=== PATIENT | male | born 1990 | race African-American/Black ===

== ENCOUNTER 2019-08-28 07:39 | Emergency (ER) | payer OTHER ==
[2019-08-28] MEDS ORDERED: IPRATROPIUM/ALBUTEROL 3 ML VIAL NEB ONE ×2 (07:43→07:48)
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
[2019-08-28] MEDS ORDERED: SODIUM CHLORIDE 0.9% (FLUSH) 10 ML SYG IV PRN (08:00)
[2019-08-28] MEDS ORDERED: methylPREDNISolone SODIUM SUC 125 MG/2 ML VIAL IV ONE (08:10)
--- NOTE | 2019-08-28 08:41 | RAD ---
EXAM DESCRIPTION: Chest,1 View CLINICAL HISTORY: 29 years Male, wheezing COMPARISON: None. TECHNIQUE: AP portable chest. FINDINGS/IMPRESSION: Patient's mildly rotated, partially limiting evaluation. Partial collapse of the left lower lobe with atelectatic changes. Increased airspace density within the right infrahilar region and left lung base may represent atelectasis, however, underlying pneumonia can also be considered within the appropriate clinical setting. No pneumothorax. The heart is normal in size. No acute osseous abnormality. Electronically signed by: Juan Maravilla DO 08/28/2019 8:39 AM CDT
--- NOTE | 2019-08-28 08:45 | RAD ---
EXAM DESCRIPTION: Shoulder, right 2 or More Views : CLINICAL HISTORY: B/l shoulder pain . COMPARISON: None . TECHNIQUE: A two view x-ray examination of Right shoulder is submitted. FINDINGS: There is no evidence of fracture, subluxation, dislocation or deformity. There is no evidence of soft tissue swelling. The bones are normally mineralized . The visualized joint spaces are normal. IMPRESSION: No evidence of fracture. Unremarkable study. Electronically signed by: Domenica Metz MD 08/28/2019 8:44 AM CDT
--- NOTE | 2019-08-28 08:45 | RAD ---
EXAM DESCRIPTION: Shoulder, left 2 or More Views : CLINICAL HISTORY: B/l shoulder pain . COMPARISON: None . TECHNIQUE: A two view x-ray examination of Left shoulder is submitted. FINDINGS: There is no evidence of fracture, subluxation, dislocation or deformity. There is no evidence of soft tissue swelling. The bones are normally mineralized . The visualized joint spaces are normal. IMPRESSION: No evidence of fracture. Unremarkable study. Electronically signed by: Domenica eMtz MD 08/28/2019 8:43 AM CDT
[2019-08-28] MEDS ORDERED: SODIUM CHLORIDE 0.9% 1000ML 1,000 ML IVS ONE ×2 (08:57→12:55)
[2019-08-28] MEDS ORDERED: SODIUM CHLORIDE 0.9% 500ML 500 ML IVS ONE (09:14)
[2019-08-28] MEDS ORDERED: MORPHINE SULFATE INJ 10 MG/ML VIAL IV ONE ×2 (09:40→15:09)
--- NOTE | 2019-08-28 10:36 | CT ---
EXAM DESCRIPTION: CTA Chest CLINICAL HISTORY: 29 years, Male, High dimer with shoulder pain COMPARISON: None TECHNIQUE: CT pulmonary angiography is performed with thin-section multi detector technique during rapid bolus administration of IV contrast media. Multiplanar reformatted images are reviewed along with source images and maximum intensity projection images which were created on a separate dedicated workstation and are stored in the patient's medical record. Per tomography technologist contrast was given to the patient, IV pressured out and IV had to be restarted. FINDINGS: Limited evaluation due to motion and contrast bolus timing. No evidence of filling defect within the main, right or left, or segmental pulmonary artery branches. The pulmonary arteries are normal in caliber. Limited evaluation of the thoracic aorta is within normal limits. Left lower lobe collapse. Dense airspace consolidation opacity also noted within the right lower lobe. No pneumothorax or significant pleural effusion. Opacity/mucous plugging within the right lower lobe distal bronchi. Tracheostomy tube terminates within the proximal trachea. The trachea and proximal airways are patent. Mild mediastinal lymphadenopathy. The heart is normal in size without pericardial effusion. No acute osseous abnormality. IMPRESSION: 1. Partially limited evaluation due to motion and contrast bolus timing. No evidence of acute or chronic pulmonary embolism. 2. Left lower lobe collapse and atelectasis with possible underlying infiltrates. 3. Right lower lobe airspace opacities concerning for aspiration pneumonia. 4. Mild mediastinal lymphadenopathy, nonspecific, and likely reactive. This exam was performed according to our departmental dose-optimization program, which includes automated exposure control, adjustment of the mA and/or kV according to patient size and/or use of iterative reconstruction technique. Electronically signed by: Juan Maravilla DO 08/28/2019 10:35 AM CDT
[2019-08-28] MEDS ORDERED: PIPERACILLIN/TAZOBACTAM 4.5 GM in SODIUM CHLORIDE 0.9% 100ML 100 ML IVPB ONE (10:53)
[2019-08-28] MEDS ORDERED: SODIUM CHLORIDE 0.9% 100ML 100 ML IVPB ONE (11:18)
[2019-08-28] MEDS ORDERED: PIPERACILLIN/TAZOBACTAM 2.25 GM VIAL IVPB ONE (11:18)
[2019-08-28 17:12] VITALS: TEMP 97.1
[2019-08-28 17:15] VITALS: BP 113/66; O2SAT 97
== END 2019-08-28 17:00 | disposition short-term general hospital (02) ==
LOC: ER 07:39
DX: J98.19 Other pulmonary collapse (principal); J18.9 Pneumonia, unspecified organism; M62.82 Rhabdomyolysis; M25.511 Pain in right shoulder; M25.512 Pain in left shoulder; Z99.11 Dependence on respirator [ventilator] status; Z79.899 Other long term (current) drug therapy
CPT/HCPCS: 36415; 71045; 71275; 73030; 80048; 80053; 81001; 82550; 82553; 83880; 84484; 85025; 85379; 85610; 85730; 93005; 94002; 94640; 94760; J2060; J2270; J2543; J2930; J7030; J7040; J7050; J7620

== ENCOUNTER 2019-09-05 15:55 | Emergency (ER) | payer OTHER ==
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
--- NOTE | 2019-09-05 16:30 | RAD ---
EXAM DESCRIPTION: Chest,1 View CLINICAL HISTORY: 29 years Male, poss sz COMPARISON: 08/28/2019 IMPRESSION: Heart size and pulmonary vascularity are within normal limits. Mild left basilar airspace opacity again demonstrated, most consistent with atelectasis or pneumonia. Small left pleural effusion versus pleural thickening. The right lung is essentially clear. No pneumothorax. No acute osseous abnormality. Partially imaged posterior cervical fusion hardware. Electronically signed by: Bear Bertrand MD 09/05/2019 4:29 PM CDT
[2019-09-05] MEDS ORDERED: ONDANSETRON INJ 4 MG/2 ML VIAL IV ONE (17:01)
[2019-09-05] MEDS ORDERED: MORPHINE SULFATE INJ 10 MG/ML VIAL IV ONE (17:01)
--- NOTE | 2019-09-05 19:35 | CT ---
EXAM DESCRIPTION: Head CLINICAL HISTORY: poss new onset seizure COMPARISON: None available TECHNIQUE: Multiple axial images of the head without contrast. Multiplanar reformatted images. This exam was performed according to our departmental dose-optimization program, which includes automated exposure control, adjustment of the mA and/or kV according to patient size and/or use of iterative reconstruction technique. FINDINGS: There is no CT evidence of intracranial hemorrhage, mass effect, or large territory infarction. The brain parenchyma and ventricles are normal. There are no abnormal extra-axial fluid collections. Vascular structures are unremarkable. There is no acute calvarial defect. Mild mucosal thickening in the left maxillary sinus and ethmoid air cells. Moderate mucosal thickening with frothy material in the right sphenoid sinus. The mastoid air cells are clear. IMPRESSION: 1. No CT evidence of an acute intracranial abnormality. Recommend follow-up MRI if symptoms persist. 2. Right sphenoid sinusitis. Electronically signed by: Bear Bertrand MD 09/05/2019 7:33 PM CDT
[2019-09-05 20:17] VITALS: TEMP 97.1
[2019-09-05 20:32] VITALS: BP 110/67; O2SAT 100
== END 2019-09-05 21:19 ==
LOC: ER 15:55
DX: R55 Syncope and collapse (principal); J98.11 Atelectasis; J01.30 Acute sphenoidal sinusitis, unspecified; G82.50 Quadriplegia, unspecified; K21.9 Gastro-esophageal reflux disease without esophagitis; F32.9 Major depressive disorder, single episode, unspecified; Z99.11 Dependence on respirator [ventilator] status; Z79.899 Other long term (current) drug therapy; Z93.1 Gastrostomy status; Z87.01 Personal history of pneumonia (recurrent)
CPT/HCPCS: 70450; 71045; 80053; 81001; 83605; 84484; 85025; 93005; 94002; 94770; J2270; J2405

== ENCOUNTER 2019-09-18 09:53 | Emergency (ER) | payer OTHER ==
--- NOTE | 2019-09-18 11:11 | ED.PDOC ---
History of Present Illness - General Chief Complaint: Respiratory Problem Stated Complaint: difficulty breathing Time Seen by Provider: 09/18/19 10:10 - History of Present Illness Initial Comments: Pt sent from the long-term for the evaluation of aspiration as per EMS pt had some difficulty breathing since 1 day, no fever or chills Timing/Duration: 4-6 hours Improving Factors: nothing Worsening Factors: nothing Associated Symptoms: denies symptoms Allergies/Adverse Reactions: Allergies NO KNOWN ALLERGY Allergy (Verified 08/28/19 07:47) Home Medications: Ambulatory Orders Acetaminophen Liquid [Tylenol Liquid] 650 ml PEG Q6HR PRN 08/28/19 Bisacodyl Suppository 10Mg [Dulcolax Suppository 10mg] [address] DAILY PRN 08/28/19 Cetirizine HCl [Cetirizine Hydrochloride] 10 mg PEG DAILY 08/28/19 Diphenhydramine HCl [Diphenhydramine Hydrochlo] 25 mg PEG Q6HR PRN 08/28/19 Docusate Sodium 100 mg PEG BID 08/28/19 Duloxetine HCl 60 mg PEG DAILY 08/28/19 Enoxaparin Sodium [Lovenox] 30 mg SUBCU BID 08/28/19 Gabapentin 300 mg PEG QID 08/28/19 Hydrocodone-Acetaminophen [Hydrocodone Bitartrate/AC] 15 - 30 ml PEG Q4H PRN 08/28/19 Ibuprofen 600 mg PEG Q6H PRN 08/28/19 LORazepam [Ativan] 1 mg PEG Q8H 08/28/19 Lactobacillus [Acidophilus] 1 cap PEG TID 08/28/19 Ondansetron HCl [Ondansetron Hydrochloride] 4 mg PEG Q4H PRN 08/28/19 Quetiapine Fumarate 50 mg PEG BEDTIME 08/28/19 Ranitidine HCl [Ranitidine Hydrochloride] 150 mg PEG BID 08/28/19 Simethicone 80 mg PEG Q6H PRN 08/28/19 Balsam Top[place] Oil [Venelex] 1 applic TOP DAILY 09/18/19 Cyclobenzaprine HCl [Flexeril] 10 mg PEG BID 09/18/19 Guaifenesin 20 ml PEG Q4H PRN 09/18/19 Review of Systems - Review of Systems Constitutional: States: no symptoms reported EENTM: States: no symptoms reported Respiratory: States: see HPI Cardiology: States: no symptoms reported Gastrointestinal/Abdominal: States: no symptoms reported Genitourinary: States: no symptoms reported Musculoskeletal: States: no symptoms reported Skin: States: no symptoms reported Neurological: States: no symptoms reported Endocrine: States: no symptoms reported Hematologic/Lymphatic: States: no symptoms reported All other Systems: Reviewed and Negative Past Medical History (General) - Patient Medical History Hx Stroke: No Hx Asthma: - Seasonal allergies Hx Congestive Heart Failure: No Hx Diabetes: No Hx Gastroesophageal Reflux: Yes - GERD; gastroparesis Hx MRSA: No - Vaccination History Hx Tetanus, Diphtheria Vaccination: - Unknown Hx Influenza Vaccination: Yes - 2019 Hx Pneumococcal Vaccination: - Unknown - Social History Hx Tobacco Use: Yes Hx Alcohol Use: No Hx Depression: Yes - Activities of Daily Living Senior Care/Assisted Living (if applicable):: [facility] Family Medical History - Family History Mother Family History: Unknown Living Status: Unknown Hx Family;Other: Pt on Mechanical Ventilation and difficult to understand without voicemitter Father Family History: Unknown Living Status: Still Living Physical Exam - Physical Exam General Appearance: Alert, Comfortable Eye Exam: bilateral normal Ears, Nose, Throat: hearing grossly normal Neck: supple Respiratory: lungs clear, no respiratory distress, no accessory muscle use Cardiovascular/Chest: tachycardia Extremity: other - paraplegic Neurologic: alert, normal mood/affect, oriented x 3, motor weakness - paraplegia Skin Exam: normal color, warm/dry Progress - Results/Orders Results/Orders: 09/18/19 10:10 Chest w/o Contrast [CT] Stat 09/18/19 10:15 EKG STAT 09/18/19 10:16 Capnography .ONCE Mechanical Ventilation DAILY Laboratory Results WBC 10.0 K/mm3 (4.8-10.8) 09/18/19 10:22 RBC 3.57 M/mm3 (4.70-6.10) L 09/18/19 10:22 Hgb 9.8 gm/dL (14.0-18.0) L 09/18/19 10:22 Hct 30.7 % (42.0-52.0) L 09/18/19 10:22 MCV 86.0 fl (80.0-94.0) 09/18/19 10:22 MCH 27.5 pg (27.0-31.0) 09/18/19 10:22 MCHC 32.0 g/dL (33.0-37.0) L 09/18/19 10:22 RDW 16.0 % (11.5-14.5) H 09/18/19 10:22 Plt Count 536 K/mm3 (130-400) H 09/18/19 10:22 MPV 6.8 fl (7.40-10.4) L 09/18/19 10:22 Absolute Neuts (auto) 6.60 K/uL (1.8-6.8) 09/18/19 10:22 Absolute Lymphs (auto) 1.70 K/uL (1.0-3.4) 09/18/19 10:22 Absolute Monos (auto) 1.20 K/uL (0.2-0.8) H 09/18/19 10:22 Absolute Eos (auto) 0.50 K/uL (0.0-0.4) H 09/18/19 10:22 Absolute Basos (auto) 0.00 K/uL (0.0-0.1) 09/18/19 10:22 Neutrophils % 65.8 % (42.0-78.0) 09/18/19 10:22 Neutrophils % (Manual) 62.0 % (42.0-78.0) 09/18/19 10:22 Lymphocytes % 17.1 % (20.0-50.0) L 09/18/19 10:22 Lymphocytes % (Manual) 24.0 % 09/18/19 10:22 Monocytes % 12.0 % (2.0-9.0) H 09/18/19 10:22 Monocytes % (Manual) 6.0 % 09/18/19 10:22 Eosinophils % 4.8 % (1.0-5.0) 09/18/19 10:22 Basophils % 0.3 % (0.0-2.0) 09/18/19 10:22 Band Neutrophils 2.0 % (0-2) 09/18/19 10:22 Eosinophils 6.0 % 09/18/19 10:22 Platelet Estimate Increased (NORMAL) 09/18/19 10:22 Poikilocytosis 1+ 09/18/19 10:22 Anisocytosis 2+ 09/18/19 10:22 Sodium 138 mmol/L (135-145) 09/18/19 10:22 Potassium 4.3 mmol/L (3.6-5.0) 09/18/19 10:22 Chloride 102 mmol/L (101-111) 09/18/19 10:22 Carbon Dioxide 24 mmol/L (21-31) 09/18/19 10:22 Anion Gap 16.3 (12-18) 09/18/19 10:22 BUN 11 mg/dL (7-18) 09/18/19 10:22 Creatinine 0.40 mg/dL (0.6-1.3) L 09/18/19 10:22 BUN/Creatinine Ratio 27.5 (10-20) H 09/18/19 10:22 Random Glucose 109 mg/dL (70-105) H 09/18/19 10:22 Serum Osmolality 275.7 mOsm/L (275-295) 09/18/19 10:22 Calcium 9.3 mg/dL (8.4-10.2) 09/18/19 10:22 Total Bilirubin 0.2 mg/dL (0.2-1.0) 09/18/19 10:22 AST 16 IU/L (10-42) 09/18/19 10:22 ALT 14 IU/L (10-60) 09/18/19 10:22 Alkaline Phosphatase 82 IU/L (42-121) 09/18/19 10:22 Serum Total Protein 7.7 gm/dL (6.4-8.2) 09/18/19 10:22 Albumin 2.5 g/dl (3.2-5.5) L 09/18/19 10:22 Globulin 5.2 gm/dL (2.3-3.5) H 09/18/19 10:22 Albumin/Globulin Ratio 0.5 (1.1-1.9) L 09/18/19 10:22 Departure - Departure Clinical Impression: Pneumonia, SOB (shortness of breath), Elevated d-dimer, Sinus tachycardia Time of Disposition: 12:19 Disposition: Left Against Medical Advice Condition: Fair Departure Forms: ED Discharge - Pt. Copy, Patient Portal Self Enrollment Diet: resume usual diet Activity: increase activity as tolerated Referrals: PIO DAVILA [Primary Care Provider] - 1-2 Weeks Home Medications: Ambulatory Orders Acetaminophen Liquid [Tylenol Liquid] 650 ml PEG Q6HR PRN 08/28/19 Bisacodyl Suppository 10Mg [Dulcolax Suppository 10mg] [address] DAILY PRN 08/28/19 Cetirizine HCl [Cetirizine Hydrochloride] 10 mg PEG DAILY 08/28/19 Diphenhydramine HCl [Diphenhydramine Hydrochlo] 25 mg PEG Q6HR PRN 08/28/19 Docusate Sodium 100 mg PEG BID 08/28/19 Duloxetine HCl 60 mg PEG DAILY 08/28/19 Enoxaparin Sodium [Lovenox] 30 mg SUBCU BID 08/28/19 Gabapentin 300 mg PEG QID 08/28/19 Hydrocodone-Acetaminophen [Hydrocodone Bitartrate/AC] 15 - 30 ml PEG Q4H PRN 08/28/19 Ibuprofen 600 mg PEG Q6H PRN 08/28/19 LORazepam [Ativan] 1 mg PEG Q8H 08/28/19 Lactobacillus [Acidophilus] 1 cap PEG TID 08/28/19 Ondansetron HCl [Ondansetron Hydrochloride] 4 mg PEG Q4H PRN 08/28/19 Quetiapine Fumarate 50 mg PEG BEDTIME 08/28/19 Ranitidine HCl [Ranitidine Hydrochloride] 150 mg PEG BID 08/28/19 Simethicone 80 mg PEG Q6H PRN 08/28/19 Balsam Topher[place] Oil [Venelex] 1 applic TOP DAILY 09/18/19 Cyclobenzaprine HCl [Flexeril] 10 mg PEG BID 09/18/19 Guaifenesin 20 ml PEG Q4H PRN 09/18/19 Comments: Pt refused for further treatment : says that he is tired and wants to go back to long-term , we explained him all the consequences for not doing further investigation and treatment but he still refused
--- NOTE | 2019-09-18 12:12 | CT ---
PROCEDURE: CT Chest Without Intravenous Contrast CLINICAL INDICATION: The patient is 29 years years old, Male; sob TECHNIQUE: Axial computed tomography images of the chest without intravenous contrast. Sagittal and coronal reformatted images were created and reviewed. This CT exam was performed using one or more of the following dose reduction techniques: automated exposure control, adjustment of the mA and/or kV according to patient size, and/or use of iterative reconstruction technique. COMPARISON: No relevant prior studies available. FINDINGS: LUNGS: Assessment of the lung parenchyma is compromised by marked respiratory motion artifact. Patchy alveolar opacities are noted in the right upper lobe and both lower lobes as well as in the lingula consistent with atelectasis and/or pneumonia versus edema. PLEURAL SPACE: Unremarkable. No significant effusion. No pneumothorax. HEART: The heart is unremarkable. BONES/JOINTS: There is no evidence of acute fracture, osseous destruction or osteoblastic changes. Transpediculate screws with interconnecting rods noted in the visualized lower cervical spine.. SOFT TISSUES: Unremarkable. VASCULATURE: Unremarkable. No abdominal aortic aneurysm. LYMPH NODES: There is no evidence of hilar, mediastinal or axillary adenopathy. Subcentimeter prevascular nodes are present TUBES, LINES AND DEVICES: Tracheostomy tube terminates approximately 9 cm above the christiano. UPPER ABDOMEN: Unremarkable. IMPRESSION: Assessment of the lung parenchyma is compromised by marked respiratory motion artifact. Patchy alveolar opacities are noted in the right upper lobe and both lower lobes as well as in the lingula consistent with atelectasis and/or pneumonia versus edema. Electronically signed by: Caroline Reddy MD 09/18/2019 12:10 PM COMPUTER REPAIRER
--- NOTE | 2019-09-18 12:13 | CT ---
PROCEDURE: CT Chest Without Intravenous Contrast CLINICAL INDICATION: The patient is 29 years years old, Male; sob TECHNIQUE: Axial computed tomography images of the chest without intravenous contrast. Sagittal and coronal reformatted images were created and reviewed. This CT exam was performed using one or more of the following dose reduction techniques: automated exposure control, adjustment of the mA and/or kV according to patient size, and/or use of iterative reconstruction technique. COMPARISON: No relevant prior studies available. FINDINGS: LUNGS: Assessment of the lung parenchyma is compromised by marked respiratory motion artifact. Patchy alveolar opacities are noted in the right upper lobe and both lower lobes as well as in the lingula consistent with atelectasis and/or pneumonia versus edema. PLEURAL SPACE: Unremarkable. No significant effusion. No pneumothorax. HEART: The heart is unremarkable. BONES/JOINTS: There is no evidence of acute fracture, osseous destruction or osteoblastic changes. Transpediculate screws with interconnecting rods noted in the visualized lower cervical spine.. SOFT TISSUES: Unremarkable. VASCULATURE: Unremarkable. No abdominal aortic aneurysm. LYMPH NODES: There is no evidence of hilar, mediastinal or axillary adenopathy. Subcentimeter prevascular nodes are present TUBES, LINES AND DEVICES: Tracheostomy tube terminates approximately 9 cm above the christinao. UPPER ABDOMEN: Unremarkable. IMPRESSION: Assessment of the lung parenchyma is compromised by marked respiratory motion artifact. Patchy alveolar opacities are noted in the right upper lobe and both lower lobes as well as in the lingula consistent with atelectasis and/or pneumonia versus edema. Electronically signed by: Caroline Reddy MD 09/18/2019 12:10 PM REGULATORY LEADER
[2019-09-18] MEDS ORDERED: levoFLOXacin 750MG IV 750 MG in PREMIX BAG 1 BAG IVPB ONE (12:23)
[2019-09-18] MEDS ORDERED: SODIUM CHLORIDE 0.9% 1000ML 1,000 ML IVS ONE (12:23)
[2019-09-18 14:21] VITALS: BP 124/81; TEMP 97.8; O2SAT 97
== END 2019-09-18 14:21 | disposition left against medical advice (07) ==
LOC: ER 09:53
DX: J18.9 Pneumonia, unspecified organism (principal); R00.0 Tachycardia, unspecified; R79.89 Other specified abnormal findings of blood chemistry; K21.9 Gastro-esophageal reflux disease without esophagitis; F32.9 Major depressive disorder, single episode, unspecified; G82.20 Paraplegia, unspecified; Z53.29 Procedure and treatment not carried out because of patient's decision for other reasons; Z79.899 Other long term (current) drug therapy; Z87.891 Personal history of nicotine dependence; Z99.11 Dependence on respirator [ventilator] status
CPT/HCPCS: 36415; 71250; 80053; 84484; 85025; 85379; 93005; 94002; 94770; J1956; J2060; J7030

== ENCOUNTER 2019-10-05 19:49 | Emergency (ER) | payer OTHER ==
[2019-10-05] MEDS ORDERED: SODIUM CHLORIDE 0.9% (FLUSH) 10 ML SYG IV PRN (20:04)
--- NOTE | 2019-10-05 20:28 | RAD ---
EXAM: Chest,1 View CLINICAL INDICATION: Difficulty breathing COMPARISON: 09/05/2019 FINDINGS: A single view of the chest was obtained. The heart size is normal. The pulmonary vascularity is unremarkable. Infiltrates are noted in both lung bases consistent with pneumonia. The lungs are otherwise clear. IMPRESSION: Bibasilar pulmonary infiltrates, consistent with pneumonia. Electronically signed by: rFancisco Chisholm MD 10/05/2019 8:27 PM FACILITIES MAINTENANCE ENGINEER
[2019-10-05 21:23] VITALS: O2SAT 100
[2019-10-05] MEDS ORDERED: PIPERACILLIN/TAZOBACTAM 4.5 GM in SODIUM CHLORIDE 0.9% 100ML 100 ML IVPB ONE (22:11)
[2019-10-05] MEDS ORDERED: levoFLOXacin 750MG IV 750 MG in PREMIX BAG 1 BAG IVPB ONE (22:12)
[2019-10-05] MEDS ORDERED: PIPERACILLIN/TAZOBACTAM 2.25 GM VIAL IVPB ONE (22:23)
[2019-10-05] MEDS ORDERED: SODIUM CHLORIDE 0.9% 100ML 100 ML IVPB ONE (22:24)
--- NOTE | 2019-10-05 23:12 | ED.PDOC ---
History of Present Illness - General Chief Complaint: Respiratory Problem Stated Complaint: fevers, diffculty breathing, low sats, vent Time Seen by Provider: 10/05/19 20:26 Source: patient - patient on a trach, RN notes reviewed, Vital Signs reviewed, EMS notes reviewed, RN/MD - History of Present Illness Timing/Duration: 7-24 hours Severity: moderate Activities at Onset: none Possible Cause: occasional episodes Improving Factors: other - oxygen Worsening Factors: nothing Associated Symptoms: cough Respiratory Risk Factors: other - trach patient Allergies/Adverse Reactions: Allergies NO KNOWN ALLERGY Allergy (Verified 08/28/19 07:47) Home Medications: Ambulatory Orders Acetaminophen Liquid [Tylenol Liquid] 650 ml PEG Q6HR PRN 08/28/19 Bisacodyl Suppository 10Mg [Dulcolax Suppository 10mg] 1 ea [place] DAILY PRN 08/28/19 Cetirizine HCl [Cetirizine Hydrochloride] 10 mg PEG DAILY 08/28/19 Diphenhydramine HCl [Diphenhydramine Hydrochlo] 25 mg PEG Q6HR PRN 08/28/19 Docusate Sodium 100 mg PEG BID 08/28/19 Duloxetine HCl 60 mg PEG DAILY 08/28/19 Enoxaparin Sodium [Lovenox] 30 mg SUBCU BID 08/28/19 Gabapentin 300 mg PEG QID 08/28/19 Hydrocodone-Acetaminophen [Hydrocodone Bitartrate/AC] 15 - 30 ml PEG Q4H PRN 08/28/19 Ibuprofen 600 mg PEG Q6H PRN 08/28/19 LORazepam [Ativan] 1 mg PEG Q8H 08/28/19 Lactobacillus [Acidophilus] 1 cap PEG TID 08/28/19 Ondansetron HCl [Ondansetron Hydrochloride] 4 mg PEG Q4H PRN 08/28/19 Quetiapine Fumarate 50 mg PEG BEDTIME 08/28/19 Ranitidine HCl [Ranitidine Hydrochloride] 150 mg PEG BID 08/28/19 Simethicone 80 mg PEG Q6H PRN 08/28/19 Balsam Topher-[place] Oil [Venelex] 1 applic TOP DAILY 09/18/19 Cyclobenzaprine HCl [Flexeril] 10 mg PEG BID 09/18/19 Guaifenesin 20 ml PEG Q4H PRN 09/18/19 Review of Systems - Review of Systems Constitutional: States: chills, fever, malaise EENTM: States: no symptoms reported Respiratory: States: see HPI, cough, orthopnea, short of breath Cardiology: States: no symptoms reported. Denies: chest pain, palpitations Gastrointestinal/Abdominal: States: no symptoms reported. Denies: abdominal pain, constipation, diarrhea, nausea Genitourinary: States: no symptoms reported Musculoskeletal: States: no symptoms reported Skin: States: no symptoms reported Neurological: States: other - patient is bedbound Endocrine: States: no symptoms reported Hematologic/Lymphatic: States: no symptoms reported All other Systems: Reviewed and Negative Past Medical History (General) - Patient Medical History Hx Stroke: No Hx Asthma: - Seasonal allergies Hx Congestive Heart Failure: No Hx Diabetes: No Hx Gastroesophageal Reflux: Yes - GERD; gastroparesis Hx MRSA: No - Vaccination History Hx Tetanus, Diphtheria Vaccination: - Unknown Hx Influenza Vaccination: Yes - 2019 Hx Pneumococcal Vaccination: - Unknown - Social History Hx Tobacco Use: Yes Hx Alcohol Use: No Hx Depression: Yes - Activities of Daily Living Jail[facility]Assisted Living (if applicable):: [facility] Family Medical History - Family History Mother Family History: Unknown Living Status: Unknown Hx Family;Other: Pt on Mechanical Ventilation and difficult to understand without voicemitter Father Family History: Unknown Living Status: Still Living Physical Exam - Physical Exam General Appearance: Alert, Anxious, Well Developed, Well Groomed, Well Nourished Eyes, Ears, Nose, Throat Exam: PERRL/EOMI, normal ENT inspection, pharynx normal Neck: non-tender, supple, other - trach in place Respiratory: no accessory muscle use, respiratory distress, crackles, rales - bases bilaterally, rhonchi - a few slightly Cardiovascular/Chest: normal peripheral pulses, no murmur, tachycardia Gastrointestinal/Abdominal: normal bowel sounds, soft Neurologic: alert, normal mood/affect, oriented x 3 Skin Exam: normal color, diaphoresis Lymphatic: no adenopathy Progress - Progress Progress: differential diagnosis: Pneumonia, strep, flu, tracheitis 10/05/19 23:15 plan on transfer for admission for healthcare acquired pneumonia. Patient understands and agrees to admission. Bright Vargas M.D. #[id number] - Results/Orders Results/Orders: 10/05/19 20:04 IV Care:Saline Lock per Protoc QSHIFT Telemetry .ONCE Sodium Chloride 0.9% (Flush) [Saline Flush Syringe] 10 ml IV PRN PRN EKG Assessment ONCE Pulse Oximetry Assessment DAILY 10/05/19 20:15 EKG STAT 10/05/19 20:30 Urine Culture Stat 10/05/19 22:12 levoFLOXacin 750MG IV [Levaquin 750MG IV] 750 mg Premix Bag 1 bag IVPB ONCE 10/05/19 22:30 BLOOD CULTURE Stat 10/06/19 09:00 Pulse Ox Daily Laboratory Results - last 24 hr 10/05/19 10/05/19 10/05/19 20:19 20:19 20:19 WBC 14.0 H RBC 2.93 L Hgb 7.5 L* Hct 23.7 L MCV 80.7 MCH 25.5 L MCHC 31.6 L RDW 18.3 H Plt Count 673 H Absolute Neuts (auto) Not Reportable Absolute Lymphs (auto) Not Reportable Absolute Monos (auto) Not Reportable Absolute Eos (auto) Not Reportable Neutrophils % Not Reportable Neutrophils % (Manual) 77.0 Lymphocytes % Not Reportable Lymphocytes % (Manual) 12.0 Monocytes % Not Reportable Monocytes % (Manual) 8.0 Eosinophils % Not Reportable Basophils % Not Reportable Eosinophils 1.0 Metamyelocytes 2.0 H Platelet Estimate Increased Normal RBC Morphology 1+poikilocytosis pCO2 pO2 HCO3 ABG pH ABG O2 Saturation ABG Base Excess ABG Deoxyhemoglobin Oxyhemoglobin % Carboxyhemoglobin % Methemoglobin % Sat Calc Total Hemoglobin Sodium 137 Potassium 5.4 H Chloride 101 Carbon Dioxide 23 Anion Gap 18.4 H BUN 33 H Creatinine 1.01 BUN/Creatinine Ratio 32.7 H Random Glucose 109 H Serum Osmolality 281.7 Lactic Acid 1.0 Calcium 9.3 Total Bilirubin 0.4 AST 11 ALT 10 Alkaline Phosphatase 74 B-Natriuretic Peptide 7.5 Serum Total Protein 7.2 Albumin 2.1 L Globulin 5.1 H Albumin/Globulin Ratio 0.4 L Urine Color Urine Appearance Urine pH Ur Specific [place] Urine Protein Urine Glucose (UA) Urine Ketones Urine Blood Urine Nitrite Urine Bilirubin Urine Urobilinogen Ur Leukocyte Esterase Urine RBC Urine WBC Ur Epithelial Cells Urine Bacteria Urine Yeast 10/05/19 10/05/19 20:30 22:09 WBC RBC Hgb Hct MCV MCH MCHC RDW Plt Count Absolute Neuts (auto) Absolute Lymphs (auto) Absolute Monos (auto) Absolute Eos (auto) Neutrophils % Neutrophils % (Manual) Lymphocytes % Lymphocytes % (Manual) Monocytes % Monocytes % (Manual) Eosinophils % Basophils % Eosinophils Metamyelocytes Platelet Estimate Normal RBC Morphology pCO2 26 L pO2 67 L HCO3 21.9 ABG pH 7.530 H ABG O2 Saturation 99.5 H ABG Base Excess 0.0 ABG Deoxyhemoglobin 0.5 Oxyhemoglobin % 97.8 Carboxyhemoglobin % -0.4 L Methemoglobin % Sat 2.2 H Calc Total Hemoglobin 8.4 L Sodium Potassium Chloride Carbon Dioxide Anion Gap BUN Creatinine BUN/Creatinine Ratio Random Glucose Serum Osmolality Lactic Acid Calcium Total Bilirubin AST ALT Alkaline Phosphatase B-Natriuretic Peptide Serum Total Protein Albumin Globulin Albumin/Globulin Ratio Urine Color Yellow Urine Appearance Cloudy Urine pH 5.5 Ur Specific [place] 1.015 Urine Protein 30 Urine Glucose (UA) Negative Urine Ketones Negative Urine Blood Moderate H Urine Nitrite Negative Urine Bilirubin Negative Urine Urobilinogen 0.2 Ur Leukocyte Esterase Small H Urine RBC 10-20 H Urine WBC 20-30 H Ur Epithelial Cells 0 Urine Bacteria 2+ H Urine Yeast 3+ budding x-ray shows bibasilar pneumoni Departure - Departure Clinical Impression: Hypoxemia Pneumonia Qualifiers: Pneumonia type: due to unspecified organism Laterality: bilateral Lung location: lower lobe of lung Qualified Code(s): J18.9 - Pneumonia, unspecified organism Fever Qualifiers: Fever type: due to other condition Qualified Code(s): R50.81 - Fever presenting with conditions classified elsewhere Time of Disposition: 23:20 Disposition: Transfer to Hospital Condition: Fair Referrals: PIO DAVILA [Primary Care Provider] - 1-2 Weeks Home Medications: Ambulatory Orders Acetaminophen Liquid [Tylenol Liquid] 650 ml PEG Q6HR PRN 08/28/19 Bisacodyl Suppository 10Mg [Dulcolax Suppository 10mg] 1 ea [place] DAILY PRN 08/28/19 Cetirizine HCl [Cetirizine Hydrochloride] 10 mg PEG DAILY 08/28/19 Diphenhydramine HCl [Diphenhydramine Hydrochlo] 25 mg PEG Q6HR PRN 08/28/19 Docusate Sodium 100 mg PEG BID 08/28/19 Duloxetine HCl 60 mg PEG DAILY 08/28/19 Enoxaparin Sodium [Lovenox] 30 mg SUBCU BID 08/28/19 Gabapentin 300 mg PEG QID 08/28/19 Hydrocodone-Acetaminophen [Hydrocodone Bitartrate/AC] 15 - 30 ml PEG Q4H PRN 08/28/19 Ibuprofen 600 mg PEG Q6H PRN 08/28/19 LORazepam [Ativan] 1 mg PEG Q8H 08/28/19 Lactobacillus [Acidophilus] 1 cap PEG TID 08/28/19 Ondansetron HCl [Ondansetron Hydrochloride] 4 mg PEG Q4H PRN 08/28/19 Quetiapine Fumarate 50 mg PEG BEDTIME 08/28/19 Ranitidine HCl [Ranitidine Hydrochloride] 150 mg PEG BID 08/28/19 Simethicone 80 mg PEG Q6H PRN 08/28/19 Balsam Topher-[place] Oil [Venelex] 1 applic TOP DAILY 09/18/19 Cyclobenzaprine HCl [Flexeril] 10 mg PEG BID 09/18/19 Guaifenesin 20 ml PEG Q4H PRN 09/18/19
[2019-10-06 00:57] VITALS: BP 107/72; TEMP 98.1
== END 2019-10-06 00:55 | disposition short-term general hospital (02) ==
LOC: ER 19:49
DX: J18.1 Lobar pneumonia, unspecified organism (principal); R09.02 Hypoxemia; R50.81 Fever presenting with conditions classified elsewhere; Z93.0 Tracheostomy status; Z87.891 Personal history of nicotine dependence; K21.9 Gastro-esophageal reflux disease without esophagitis; R00.0 Tachycardia, unspecified; Z79.01 Long term (current) use of anticoagulants; Z79.899 Other long term (current) drug therapy
CPT/HCPCS: 36415; 36600; 71045; 80053; 81001; 82803; 83605; 83880; 85025; 87040; 87086; 87502; 93005; 94002; 94003; J1956; J2543; J7050

== ENCOUNTER 2019-10-07 19:22 | Emergency (ER) | payer OTHER ==
[2019-10-07] MEDS ORDERED: SODIUM CHLORIDE 0.9% 1000ML 1,000 ML IVS ONE (19:29)
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
[2019-10-07 20:01] VITALS: O2SAT 100
--- NOTE | 2019-10-07 20:12 | RAD ---
EXAM DESCRIPTION: Chest,1 View CLINICAL HISTORY: 29 years Male, short of breath COMPARISON: Chest x-ray October 05, 2019 FINDINGS: A right upper extremity PICC line is present with tip in the lower SVC. Tracheostomy tube overlying the trachea noted. Opacity in the right lower lung zone appears mildly increased. Subtle opacity in the left lower lung zone appears less prominent. No pneumothorax. There is blunting of the right costophrenic angle suggestive of a small right pleural effusion. Cardiomediastinal silhouette is unremarkable. Osseous structures are unchanged. IMPRESSION: 1. Right basilar pulmonary opacity concerning for pneumonia appearing mildly increased. 2. Subtle opacity which may also represent infiltrate in the left lung base appears less prominent. 3. Possible small right pleural effusion. 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
[2019-10-07 21:12] VITALS: BP 149/91; TEMP 97.9
== END 2019-10-07 21:13 ==
LOC: ER 19:22
DX: J18.9 Pneumonia, unspecified organism (principal); R06.02 Shortness of breath; Z99.11 Dependence on respirator [ventilator] status; D63.8 Anemia in other chronic diseases classified elsewhere
CPT/HCPCS: 36415; 71045; 80048; 85025; 94002; 94770; J2060; J7030

== ENCOUNTER 2019-10-27 01:15 | Emergency (ER) | payer OTHER ==
[2019-10-27] MEDS ORDERED: IPRATROPIUM/ALBUTEROL 3 ML VIAL NEB ONE ×2 (01:30)
[2019-10-27] MEDS ORDERED: ACETYLCYSTEIN 20 % 6,000 MG/30 ML VIAL NEB ONE (01:32)
--- NOTE | 2019-10-27 02:01 | RAD ---
EXAM: XR Chest, 1 View CLINICAL HISTORY: 29 years old Male; sob on vent. TECHNIQUE: Frontal view of the chest. COMPARISON: Similar examination performed 10/07/2019 which demonstrated right basilar pulmonary opacity suspicious for pneumonia with some less significant left lung base opacity and a possible small right pleural effusion by report. FINDINGS: LUNGS: Worsening infiltrate in the right lung base with possible increasing right pleural effusion. Noted again is some retrocardiac infiltrate in the left lung base, as well. PLEURAL SPACE: No significantly increasing left pleural fluid. No pneumothorax seen bilaterally. HEART: Heart stable in size. MEDIASTINUM: Stable. BONES/JOINTS: Orthopedic hardware once again identified in the region of the cervicothoracic vertebral column. No acute bony abnormality seen. TUBES, LINES AND DEVICES: Interval removal of a right PICC. Tracheostomy once again seen. IMPRESSION: - Worsening infiltrate in the right lung base with possible increasing right pleural effusion. Most suspicious for worsening pneumonia and parapneumonic effusion, however, clinical correlation is suggested. - Noted again is some retrocardiac infiltrate in the left lung base, as well. Also suspicious for pneumonia, however, clinical correlation is suggested. - Interval removal of a right PICC. Thank you for allowing us to participate in the care of this patient. Electronically signed by: Radu Allen MD 10/27/2019 1:59 AM DIRECTOR OF FINANCIAL AID
[2019-10-27] MEDS ORDERED: metroNIDAZOLE IV PREMIX 500MG 500 MG in PREMIX BAG 1 BAG IVPB ONE (02:36)
[2019-10-27] MEDS ORDERED: CEFEPIME 2 GM in SODIUM CHL 0.9% 50ML MIN-BAG+ 50 ML IVPB ONE (02:36)
[2019-10-27] MEDS ORDERED: IBUPROFEN 200 MG TAB GT ONE (02:36)
[2019-10-27 02:39] VITALS: O2SAT 100
[2019-10-27] MEDS ORDERED: CEFEPIME 2 GM VIAL ONE (02:44)
[2019-10-27] MEDS ORDERED: SODIUM CHL 0.9% 50ML MIN-BAG+ 50 ML IVPB ONE (02:45)
[2019-10-27] MEDS ORDERED: metroNIDAZOLE IV PREMIX 500MG 100 ML IVPB ONE (02:45)
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
[2019-10-27 03:20] VITALS: TEMP 98.5
[2019-10-27 04:36] VITALS: BP 136/78
== END 2019-10-27 04:10 | disposition short-term general hospital (02) ==
LOC: ER 01:15
DX: J95.851 Ventilator associated pneumonia (principal); Z99.11 Dependence on respirator [ventilator] status; G82.50 Quadriplegia, unspecified; K21.9 Gastro-esophageal reflux disease without esophagitis; F32.9 Major depressive disorder, single episode, unspecified; Z87.891 Personal history of nicotine dependence; Z79.899 Other long term (current) drug therapy; Z79.82 Long term (current) use of aspirin
CPT/HCPCS: 71045; 80053; 82550; 82553; 83605; 83880; 84484; 85025; 87040; 87070; 87077; 87186; 87205; 87502; 93005; 94002; 94640; J0692; J3490; J7050; J7620

== ENCOUNTER 2019-11-04 17:34 | Emergency (ER) | payer OTHER ==
--- NOTE | 2019-11-04 18:52 | ED.PDOC ---
History of Present Illness - General Chief Complaint: Respiratory Problem Stated Complaint: Difficulty breathing Time Seen by Provider: 11/04/19 18:02 Source: RN notes reviewed, Vital Signs reviewed, EMS notes reviewed, old records - Reviewed last ED visit as well as his chest x-ray from October 27, 2019. Exam Limitations: other - Patient with trach in place and is unable to speak to me. - History of Present Illness Initial Comments: Patient is a 29-year-old black male who [facility] from [facility]. Patient is a trach patient and today they noticed increased difficulty breathing, decreased oxygen saturations and they sent him to the emergency department for further evaluation. Review of systems and HPI is limited secondary to patient's inability to speak because of his trach collar. Per the [facility] patient has not been running any fevers. Timing/Duration: 7-24 hours Severity: moderate Activities at Onset: none Possible Cause: frequent episodes Improving Factors: nothing Worsening Factors: nothing Associated Symptoms: other - Unknown Respiratory Risk Factors: no cause identified Allergies/Adverse Reactions: Allergies NO KNOWN ALLERGY Allergy (Verified 11/04/19 17:56) Home Medications: Ambulatory Orders Acetaminophen Liquid [Tylenol Liquid] 650 ml PEG Q6HR PRN 08/28/19 Bisacodyl Suppository 10Mg [Dulcolax Suppository 10mg] 1 ea [place] DAILY PRN 08/28/19 Cetirizine HCl [Cetirizine Hydrochloride] 10 mg PEG DAILY 08/28/19 Diphenhydramine HCl [Diphenhydramine Hydrochlo] 25 mg PEG Q6HR PRN 08/28/19 Docusate Sodium 100 mg PEG BID 08/28/19 Duloxetine HCl 60 mg PEG DAILY 08/28/19 Gabapentin 600 mg PEG QID 08/28/19 Hydrocodone-Acetaminophen [Hydrocodone Bitartrate/AC] 15 - 30 ml PEG Q4H PRN 08/28/19 Ibuprofen 600 mg PEG Q6H PRN 08/28/19 LORazepam [Ativan] 1 mg PEG Q8H 08/28/19 Lactobacillus [Acidophilus] 1 cap PEG TID 08/28/19 Ondansetron HCl [Ondansetron Hydrochloride] 4 mg PEG Q4H PRN 08/28/19 Quetiapine Fumarate 50 mg PEG BEDTIME 08/28/19 Ranitidine HCl [Ranitidine Hydrochloride] 150 mg PEG BID 08/28/19 Simethicone 80 mg PEG Q6H PRN 08/28/19 Balsam [place] Oil [Venelex] 1 applic TOP DAILY 09/18/19 Guaifenesin 20 ml PEG Q4H PRN 09/18/19 Aspirin [Aspirin Childrens] 81 mg PEG DAILY 10/27/19 Ipratropium/Albuterol [Duoneb] 3 ml INH Q4HR 10/27/19 Methocarbamol [Robaxin] 500 mg PEG DAILY 10/27/19 Sennosides-Docusate Sodium [Senna Plus 8.6-50 mg] 1 tab PEG DAILY 10/27/19 levoFLOXacin [Levaquin] 500 mg PEG DAILY 10/27/19 Review of Systems - Review of Systems Constitutional: States: see HPI, diaphoresis EENTM: States: no symptoms reported Respiratory: States: see HPI, cough, short of breath Gastrointestinal/Abdominal: States: no symptoms reported Genitourinary: States: no symptoms reported Unable to Obtain Due To: clinical condition - Patient unable to speak secondary to trach collar. All other Systems: Reviewed and Negative Past Medical History (General) - Patient Medical History Hx Seizures: No Hx Stroke: No Hx Dementia: No Hx Asthma: No - Seasonal allergies Hx of COPD: No Hx Cardiac Disorders: No Hx Congestive Heart Failure: No Hx Pacemaker: No Hx Hypertension: No Hx Thyroid Disease: No Hx Diabetes: No Hx Gastroesophageal Reflux: Yes - GERD; gastroparesis Hx Renal Disease: No Hx Cancer: No Hx of HIV: No Hx Hepatitis C: No Hx MRSA: No - Vaccination History Hx Tetanus, Diphtheria Vaccination: - Unknown Hx Influenza Vaccination: Yes - 2019 Hx Pneumococcal Vaccination: - Unknown - Social History Hx Tobacco Use: Yes Hx Chewing Tobacco Use: No Hx Alcohol Use: No Hx Substance Use: No Hx Substance Use Treatment: No Hx Depression: Yes Hx Physical Abuse: No Hx Emotional Abuse: No Hx Suspected Abuse: No - Activities of Daily Living Senior Care/Assisted Living (if applicable):: [facility] Family Medical History - Family History Mother Family History: Unknown Living Status: Unknown Hx Family;Other: Pt on Mechanical Ventilation and difficult to understand without voicemitter Father Family History: Unknown Living Status: Still Living Physical Exam - Physical Exam General Appearance: Alert, Anxious, Well Developed, Well Groomed, Well Hydrated, Well Nourished Eyes, Ears, Nose, Throat Exam: PERRL/EOMI, other - Patient with trach collar in place. Neck: non-tender, full range of motion, supple Respiratory: respiratory distress - Mild, decreased breath sounds - Bilateral lower lobes, worse in the right, crackles - Bilateral lower lobes right greater than left. Cardiovascular/Chest: normal peripheral pulses, regular rate, rhythm, no edema, no gallop, no JVD, no murmur Peripheral Pulses: radial,right: 2+, radial,left: 2+ Gastrointestinal/Abdominal: normal bowel sounds, non tender, soft Extremity: normal inspection, no pedal edema Neurologic: alert, motor weakness - Bilateral lower extremities Skin Exam: normal color, diaphoresis Lymphatic: no adenopathy Progress - Progress Progress: Differential diagnosis: Influenza, pneumonia, viral URI, sepsis among others. 11/04/19 20:41 Patient with worsening pneumonia on chest x-ray. Plan readmission to the hospital. I have discussed with [facility], Dr. Cerda, and he is excepted the patient for admission. Bright Vargas M.D. #[id number] - Results/Orders Results/Orders: EXAM DESCRIPTION: X-RAY Chest,1 View CLINICAL HISTORY: 29 years Male, sob COMPARISON: October 27, 2019. FINDINGS: Tracheostomy tube stable in position. Persistent right basilar airspace disease with increasing right pleural effusion. Developing left retrocardiac opacity. No pneumothorax. IMPRESSION: 1. Persistent right basilar airspace disease suspicious for pneumonia with increasing right pleural effusion. 2. Developing left retrocardiac opacity may represent atelectasis versus infiltrate. Electronically signed by: Antonio Farris MD 11/04/2019 6:55 EKG performed on 04 November 2019 at 1812 hrs.: Sinus tachycardia at 110 bpm, normal axis deviation, no ST or T wave changes, otherwise normal EKG. Departure - Departure Clinical Impression: Hypoxemia, Dehydration Bilateral pneumonia Qualifiers: Pneumonia type: due to unspecified organism Lung location: lower lobe of lung Qualified Code(s): J18.9 - Pneumonia, unspecified organism Time of Disposition: 20:44 Disposition: Transfer to Hospital Condition: Fair Departure Forms: ED Discharge - Pt. Copy, Patient Portal Self Enrollment Referrals: PIO DAVILA [Primary Care Provider] - 1-2 Weeks Home Medications: Ambulatory Orders Acetaminophen Liquid [Tylenol Liquid] 650 ml PEG Q6HR PRN 08/28/19 Bisacodyl Suppository 10Mg [Dulcolax Suppository 10mg] 1 ea [place] DAILY PRN 08/28/19 Cetirizine HCl [Cetirizine Hydrochloride] 10 mg PEG DAILY 08/28/19 Diphenhydramine HCl [Diphenhydramine Hydrochlo] 25 mg PEG Q6HR PRN 08/28/19 Docusate Sodium 100 mg PEG BID 08/28/19 Duloxetine HCl 60 mg PEG DAILY 08/28/19 Gabapentin 600 mg PEG QID 08/28/19 Hydrocodone-Acetaminophen [Hydrocodone Bitartrate/AC] 15 - 30 ml PEG Q4H PRN 08/28/19 Ibuprofen 600 mg PEG Q6H PRN 08/28/19 LORazepam [Ativan] 1 mg PEG Q8H 08/28/19 Lactobacillus [Acidophilus] 1 cap PEG TID 08/28/19 Ondansetron HCl [Ondansetron Hydrochloride] 4 mg PEG Q4H PRN 08/28/19 Quetiapine Fumarate 50 mg PEG BEDTIME 08/28/19 Ranitidine HCl [Ranitidine Hydrochloride] 150 mg PEG BID 08/28/19 Simethicone 80 mg PEG Q6H PRN 08/28/19 Balsam [place] Oil [Venelex] 1 applic TOP DAILY 09/18/19 Guaifenesin 20 ml PEG Q4H PRN 09/18/19 Aspirin [Aspirin Childrens] 81 mg PEG DAILY 10/27/19 Ipratropium/Albuterol [Duoneb] 3 ml INH Q4HR 10/27/19 Methocarbamol [Robaxin] 500 mg PEG DAILY 10/27/19 Sennosides-Docusate Sodium [Senna Plus 8.6-50 mg] 1 tab PEG DAILY 10/27/19 levoFLOXacin [Levaquin] 500 mg PEG DAILY 10/27/19 Transfer to Outside Facility - Transfer Information Decision to Transfer Date: 11/04/19 Decision to Transfer Time: 20:43 Reason for Transfer: required specialist not available - Infectious disease Accepting Facility: [facility]
[2019-11-04] MEDS ORDERED: ONDANSETRON INJ 4 MG/2 ML VIAL ONE (18:55)
[2019-11-04] MEDS ORDERED: IPRATROPIUM/ALBUTEROL 3 ML VIAL NEB ONE (18:56)
--- NOTE | 2019-11-04 18:56 | RAD ---
EXAM DESCRIPTION: X-RAY Chest,1 View CLINICAL HISTORY: 29 years Male, sob COMPARISON: October 27, 2019. FINDINGS: Tracheostomy tube stable in position. Persistent right basilar airspace disease with increasing right pleural effusion. Developing left retrocardiac opacity. No pneumothorax. IMPRESSION: 1. Persistent right basilar airspace disease suspicious for pneumonia with increasing right pleural effusion. 2. Developing left retrocardiac opacity may represent atelectasis versus infiltrate. 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
[2019-11-04] MEDS ORDERED: ALBUTEROL SULFATE 2.5 MG/3 ML VIAL NEB SCH (19:00)
[2019-11-04] MEDS ORDERED: ONDANSETRON INJ 4 MG/2 ML VIAL IM ONE (19:05)
[2019-11-04] MEDS ORDERED: VANCOMYCIN HCL INJ 1,000 MG in SODIUM CHLORIDE 0.9% 250ML 250 ML IVPB ONE (19:49)
[2019-11-04] MEDS ORDERED: CLINDAMYCIN IV 900MG 900 MG in PREMIX BAG 1 BAG IVPB ONE (19:49)
[2019-11-04] MEDS ORDERED: levoFLOXacin 750MG IV 750 MG in PREMIX BAG 1 BAG IVPB ONE (19:49)
[2019-11-04] MEDS ORDERED: CEFEPIME 2 GM in SODIUM CHL 0.9% 50ML MIN-BAG+ 50 ML IVPB ONE (19:49)
[2019-11-04 20:17] VITALS: O2SAT 100
[2019-11-04] MEDS ORDERED: PROMETHAZINE HCL INJ 25 MG/ML VIAL ONE (20:26)
[2019-11-04] MEDS ORDERED: SODIUM CHLORIDE 0.9% 50ML 50 ML ONE (20:26)
[2019-11-04] MEDS ORDERED: PROMETHAZINE HCL INJ 25 MG in SODIUM CHLORIDE 0.9% 50ML 50 ML IVPB ONE (20:30)
[2019-11-04] MEDS ORDERED: hydrALAZINE HCl 20 MG/ML VIAL ONE (20:41)
[2019-11-04] MEDS ORDERED: hydrALAZINE HCl 20 MG/ML VIAL IV ONE (20:41)
[2019-11-04 21:49] VITALS: BP 152/95; TEMP 98.2
== END 2019-11-04 21:45 | disposition short-term general hospital (02) ==
LOC: ER 17:34
DX: J18.9 Pneumonia, unspecified organism (principal); R09.02 Hypoxemia; E86.0 Dehydration; R00.0 Tachycardia, unspecified; F32.9 Major depressive disorder, single episode, unspecified; K21.9 Gastro-esophageal reflux disease without esophagitis; Z99.11 Dependence on respirator [ventilator] status; Z87.891 Personal history of nicotine dependence; Z79.899 Other long term (current) drug therapy; Z79.82 Long term (current) use of aspirin
CPT/HCPCS: 36415; 71045; 80053; 83605; 85025; 87040; 94003; 94640; 94770; A4216; J0360; J1956; J2405; J2550; J7611; J7620

== ENCOUNTER 2019-11-23 14:40 | Emergency (ER) | payer OTHER ==
[2019-11-23 14:55] VITALS: TEMP 97.6
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
--- NOTE | 2019-11-23 15:12 | RAD ---
EXAM DESCRIPTION: Chest,1 View CLINICAL HISTORY: 29 years Male, sob COMPARISON: Previous study November 04, 2019 TECHNIQUE: AP portable chest. FINDINGS: Right pneumothorax is noted with complete collapse of the right lung. Linear densities in the mid and lower lung zone thought to be related to pleural adhesions. Abnormal bowel in the lower chest is possible but thought less likely. Correlate with chest CT findings. Heart size is normal with normal pulmonary vascularity in the left lung. In the mid and lower left lung, linear densities are consistent with discoid atelectasis. Tracheostomy tube tip is at the level of the clavicles approximately 10 cm above the christiano. No pulmonary mass or worrisome nodule. No pleural effusion. Inferior subluxation of the left humeral head relative to the glenoid fossa. Orthopedic hardware in the lower C-spine. IMPRESSION: Right pneumothorax with collapse of the right lung. See above. 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
[2019-11-23] MEDS ORDERED: LIDOCAINE 1% W/ EPINEPHRINE 20 ML VIAL INJ ONE (15:20)
[2019-11-23] MEDS ORDERED: POVIDONE IODINE 10 % 15 ML UD TOP ONE (15:36)
[2019-11-23] MEDS: fentaNYL CITRATE INJ 50 MCG/ML AMP IV ONE ×2 (15:40→16:35)
[2019-11-23] MEDS: MIDAZOLAM INJ 5 MG/5 ML VIAL IV ONE (16:11)
[2019-11-23 16:14] VITALS: O2SAT 100
--- NOTE | 2019-11-23 16:22 | RAD ---
EXAM DESCRIPTION: Chest,1 View CLINICAL HISTORY: post procedure COMPARISON: Chest x-ray November 23, 2019 at 1456 hours IMPRESSION: Frontal view the thorax acquired after right-sided chest tube placement. Substantial reexpansion of the right lung is noted with residual 10-15 % pneumothorax. The chest tube is noted with distal tip projecting along the medial aspect of the superior mediastinum. Tracheostomy tube noted. PEG tube noted. No other significant change is present from the comparison. Electronically signed by: Jewel Garcia MD 11/23/2019 4:20 PM [facility]
[2019-11-23 17:46] VITALS: BP 108/81
== END 2019-11-23 17:46 | disposition short-term general hospital (02) ==
LOC: ER 14:40
DX: J93.9 Pneumothorax, unspecified (principal); R00.1 Bradycardia, unspecified; G82.50 Quadriplegia, unspecified; F32.9 Major depressive disorder, single episode, unspecified; K21.9 Gastro-esophageal reflux disease without esophagitis; Z99.11 Dependence on respirator [ventilator] status; Z93.1 Gastrostomy status; Z87.891 Personal history of nicotine dependence; Z79.82 Long term (current) use of aspirin; Z79.899 Other long term (current) drug therapy